=== PATIENT | male | born 1960 | race Caucasian/White ===

== ENCOUNTER → 2019-10-02 | Outpatient (CLI) | payer OTHER ==
[~2019-10-02] VITALS: Ht 175.3 cm; Wt 113.4 kg
[~2019-10-02] MED LIST: CARI-277 PO; CYAN1TAB14 PO; DAPA1TAB4 PO; EMPA1TAB PO; GLIP5TAB12 PO; HYDR-4833 PO; IBUP800T24 PO; LISI2.5T47 PO; METF-372 PO; MULTTAB61 PO; SIMV-8 PO; TAM04C PO
[2019-10-02 11:22] LABS: Urine WBC None Seen /hpf (0 - 3)
[2019-10-02 11:27] LABS: Basophils # (auto) 0.1 uL; Basophils % (auto) 0.7 % (0.0-2.0); Eosinophils # (auto) 0.3 uL; Eosinophils % (auto) 3.2 % (0.0-7.0); Hematocrit 48.5 % (41.0-53.0); Hemoglobin 16.7 g/dL (13.5-17.5); Lymphocytes % (auto) 21.7 % (10.0-50.0); Mean Corpuscular Hemoglobin 31.1 pg (28.0-32.0); Mean Corpuscular Hgb Conc. 34.4 g/dL (32.0-36.0); Mean Corpuscular Volume 90.4 fL (80.0-100.0); Monocytes # (auto) 0.6 uL; Monocytes % (auto) 7.1 % (0.0-12.0); Neutrophils # (auto) 6.1 uL; Neutrophils % (auto) 67.3 % (37.0-80.0); Nucleated Red Blood Cells % 0.2 %; Platelet Count (auto) 249 10^3/uL (140-450); Red Blood Cells 5.37 10^6/uL (4.5-5.90); Red Cell Distribution Width 14.5 % (11.8-14.3)
[2019-10-02 11:38] LABS: Urine Bacteria NONE SEEN /hpf (None Seen); Urine Blood Negative /uL (Negative); Urine Specific Gravity 1.032 (1.001-1.035)
[2019-10-02 11:46] LABS: INR 0.95 (0.9-1.15); Partial Thromboplastin Time 27.6 sec (23.64-32.05)
[2019-10-02 12:35] LABS: Calcium 9.2 mg/dL (8.5-10.1); Potassium 4.8 mmol/L (3.5-5.1)
[2019-10-02 12:38] LABS: BUN/Creatinine Ratio 26.1; Bilirubin, Total 0.5 mg/dL (0.2-1.0); Total Protein 7.8 g/dL (6.4-8.2)
== END | disposition home or self-care (01) ==
LOC: SUR 11:10 → EDSTATUS 10-08 08:01
PROVIDERS: ATTEND Orthopaedic Surgery
DX: M67.262 Synovial hypertrophy, not elsewhere classified, left lower leg (principal); M71.22 Synovial cyst of popliteal space [Baker], left knee; M67.52 Plica syndrome, left knee; S83.28 Other tear of lateral meniscus, current injury; X58.XXXS Exposure to other specified factors, sequela
CPT/HCPCS: 36415; 80053; 81001; 85025; 85610; 85730

== ENCOUNTER 2019-12-06 13:51 | Emergency (ER) | payer OTHER ==
[~2019-12-06] VITALS: Ht 180.3 cm; Wt 113.4 kg
[2019-12-06 14:08] VITALS: BP 160/101
[2019-12-06] MEDS ORDERED: KETOROLAC TROMETH 60MG/2ML VIAL IM ONE (15:00)
== END 2019-12-06 16:23 | disposition home or self-care (01) ==
LOC: ER 13:51 → EDBD 13:51 → ER 16:22
DX: S16.1XXA Strain of muscle, fascia and tendon at neck level, initial encounter (principal); S39.012A Strain of muscle, fascia and tendon of lower back, initial encounter; S76.012A Strain of muscle, fascia and tendon of left hip, initial encounter; S70.312A Abrasion, left thigh, initial encounter; M50.30 Other cervical disc degeneration, unspecified cervical region; M51.36 Other intervertebral disc degeneration, lumbar region; E11.9 Type 2 diabetes mellitus without complications; I10 Essential (primary) hypertension; Z79.899 Other long term (current) drug therapy; V43.52XA Car driver injured in collision with other type car in traffic accident, initial encounter; Y93.89 Activity, other specified; Y92.488 Other paved roadways as the place of occurrence of the external cause; Y99.8 Other external cause status
CPT/HCPCS: 72040; 72100; 73502; 96372; 99283; J1885